=== PATIENT | female | born 1935 | race Caucasian/White ===

== ENCOUNTER 2018-11-14 12:45 | Emergency (ER) | payer MEDICARE, MEDICAID ==
[~2018-11-14] VITALS: Ht 167.6 cm; Wt 88.5 kg
[~2018-11-14 12:45] MED LIST: AMIT-189 PO; AMLO2.5T4 PO; ARIP15TA3 PO; ASPI-1264 PO; BENA40TA73 PO; DICL75TA5 PO; ESTR1.25 PO; LOVA40TA76 PO; OXYC-150 PO; POTA20TA39 PO; SYN0.0125T PO; TRIA1TAB5 PO; VAL5T PO; VENL-190 PO
[2018-11-14 12:50] VITALS: BP 170/74
== END 2018-11-14 15:30 | disposition home or self-care (01) ==
LOC: ER 12:45
DX: M25.532 Pain in left wrist (principal); I10 Essential (primary) hypertension; Z90.710 Acquired absence of both cervix and uterus; Z98.890 Other specified postprocedural states; Z88.1 Allergy status to other antibiotic agents; Z79.82 Long term (current) use of aspirin; Z79.899 Other long term (current) drug therapy
CPT/HCPCS: 29125; 73110; 73130; 99284

== ENCOUNTER 2021-10-12 13:05 | Day surgery (SDC) | payer MEDICARE, MEDICAID ==
[2021-10-07 14:09] LABS: BASOPHILS # (AUTO) 0.1 X10'3 (0-0.2); BASOPHILS % (AUTO) 1.3 % (0-1); EOSINOPHILS % (AUTO) 0.1 % (0-6); HEMATOCRIT 38.8 % (35.0-45.0); HEMOGLOBIN 13.2 g/dl (12.0-16.0); LYMPHOCYTES # (AUTO) 1.8 X10'3 (1.1-4.8); LYMPHOCYTES % (AUTO) 37.7 % (21-51); MEAN CORPUSCULAR HEMOGLOBIN 33.4 PG (27.0-31.0); MEAN CORPUSCULAR VOLUME 98.3 FL (78-98); MEAN PLATELET VOLUME 8.3 FL (7.4-10.4); MONOCYTES # (AUTO) 0.5 X10'3 (0-0.9); MONOCYTES % (AUTO) 10.1 % (2-12); NEUTROPHILS # (AUTO) 2.4 X10'3 (1.8-7.7); NEUTROPHILS % (AUTO) 50.8 % (42-75); PLATELET COUNT 153 X10'3 (140-440); RED BLOOD COUNT 3.95 X10'6 (4.20-5.60); RED CELL DISTRIBUTION WIDTH 16.8 % (11.5-14.5); WHITE BLOOD COUNT 4.8 X10'3 (4.5-11.0)
[2021-10-07 14:14] LABS: ALBUMIN 3.3 G/DL (3.4-5.0); ANION GAP 10 (8-16); BLOOD UREA NITROGEN 23 MG/DL (7-18); BUN/CREATININE RATIO 34.8 (6.6-38.0); CALCIUM 8.7 MG/DL (8.5-10.1); CHLORIDE 109 MMOL/L (99-107); CREATININE 0.66 MG/DL (0.40-0.90); GLUCOSE 96 MG/DL (70-104); POTASSIUM 3.8 MMOL/L (3.5-5.1); SODIUM 146 MMOL/L (135-145); TOTAL CARBON DIOXIDE 27.3 MMOL/L (24-32); eGFR 85 ML/MIN
[2021-10-07 14:17] LABS: PARTIAL THROMBOPLASTIN TIME 23 SECONDS (22-32)
[~2021-10-12] VITALS: Ht 165.1 cm; Wt 87.7 kg
[2021-10-12] VITALS (7 sets, daily range): BP systolic 92–159; BP diastolic 38–85
[~2021-10-12 13:05] MED LIST changes: +DIAZ5TAB22 PO; -VAL5T PO
[2021-10-12] MEDS ORDERED: LIDOcaine/PRILOcaine 5gm cream TP ONE (13:35)
[2021-10-12] MEDS ORDERED: normal saline 1,000 ML IV SCH (13:35)
[2021-10-12] MEDS ORDERED: diphenhydrAMINE 25mg capsule PO PRN (13:35)
[2021-10-12] MEDS ORDERED: LORazepam 0.5 MG tablet PO PRN (13:35)
[2021-10-12] MEDS ORDERED: nitroGLYCERIN-Tridil 50MG/D5W 250 ML IV ONE (13:40)
[2021-10-12] MEDS ORDERED: verapamil 2.5 mg/ml inj IV ONE (13:41)
[2021-10-12] MEDS ORDERED: midazolam 1 mg/ML 2ml injection ONE (13:41)
[2021-10-12] MEDS ORDERED: LIDOcaine 1% (10mg/ml)w/preservative injection 20ml MDV ONE (13:41)
[2021-10-12] MEDS ORDERED: fentaNYL/PF 50MCG/1 ML 2ML syringe ONE (13:41)
[2021-10-12] MEDS ORDERED: iohexol 350MG/ML 100ml bottle IV ONE (13:42)
[2021-10-12] MEDS ORDERED: heparin 1,000unit/ml 10ml vial 10 ML ONE (13:42)
[2021-10-12] MEDS ORDERED: BUSP10TA3 PO (14:02)
[2021-10-12] MEDS ORDERED: AMLO10TA13 PO (14:02)
[2021-10-12] MEDS ORDERED: LEVO150T8 PO (14:02)
[2021-10-12] MEDS ORDERED: VIT1CAPS46 PO (14:02)
[2021-10-12] MEDS ORDERED: METH114C4 TOP (14:03)
[2021-10-12] MEDS ORDERED: ASPI-1071 PO (14:04)
[2021-10-12] MEDS ORDERED: POLY119P2 PO (14:04)
[2021-10-12] MEDS ORDERED: ATOR20TA PO (14:05)
[2021-10-12] MEDS ORDERED: CLOP75TA15 PO (14:05)
[2021-10-12] MEDS ORDERED: DONE10TA7 PO (14:06)
[2021-10-12] MEDS ORDERED: TRAZ-256 PO (14:07)
[2021-10-12] MEDS ORDERED: BRIM5DRO16 OP (14:09)
[2021-10-12] MEDS ORDERED: DULO60CA60 PO (14:10)
[2021-10-12] MEDS ORDERED: MELA10TA PO (14:10)
[2021-10-12] MEDS ORDERED: MELO-102 PO (14:11)
[2021-10-12] MEDS ORDERED: ATENOLOL 12.5 MG PO (14:14)
[2021-10-12] MEDS ORDERED: LISI20TA28 PO (14:14)
[2021-10-12] MEDS ORDERED: MULT-1085 PO (14:14)
[2021-10-12] MEDS ORDERED: [UNRECOGNIZED DRUG - OTHER] PO (14:15)
[2021-10-12] MEDS ORDERED: [UNRECOGNIZED DRUG - OTHER] PO (14:15)
[2021-10-12] MEDS ORDERED: iohexol 350 MG/ML 50ML vial IV ONE (14:45)
[2021-10-12] MEDS ORDERED: ondansetron/PF 4mg/2ml inj IV PRN (15:25)
[2021-10-12] MEDS ORDERED: OXAZEpam 15mg capsule PO PRN (15:25)
[2021-10-12] MEDS ORDERED: HYDROcodone/acetaminophen 10/325mg tab PO PRN (15:25)
[2021-10-12] MEDS ORDERED: HYDROcodone/acetaminophen 5mg/325mg tablet PO PRN (15:25)
[2021-10-12] MEDS ORDERED: proCHLORperazine 10 MG/2 ml inj IV PRN (15:25)
== END 2021-10-12 17:22 | disposition home or self-care (01) ==
LOC: SSTAY O 13:05
PROVIDERS: ATTEND Internal Medicine Interventional Cardiology
DX: I35.0 Nonrheumatic aortic (valve) stenosis (principal); I25.10 Atherosclerotic heart disease of native coronary artery without angina pectoris; I10 Essential (primary) hypertension; I45.10 Unspecified right bundle-branch block; E03.9 Hypothyroidism, unspecified; I65.29 Occlusion and stenosis of unspecified carotid artery; M81.0 Age-related osteoporosis without current pathological fracture; Z79.01 Long term (current) use of anticoagulants; Z79.82 Long term (current) use of aspirin; Z79.899 Other long term (current) drug therapy
CPT/HCPCS: 36415; 80048; 85025; 85610; 85730; 93005; 93454; 99152; 99153; C1769; C1894; J1644; J2001; J2250; J3010; J7030; Q9967; A4620; A5120; J3490

== ENCOUNTER 2021-10-27 10:19 | Outpatient (CLI) | payer MEDICARE, MEDICAID ==
[~2021-10-27 10:19] MED LIST changes: -AMIT-189 PO; +AMLO10TA13 PO; -AMLO2.5T4 PO; -ARIP15TA3 PO; +ASPI-1071 PO; -ASPI-1264 PO; +ATENOLOL 12.5 MG PO; +ATOR20TA PO; -BENA40TA73 PO; +BRIM5DRO16 OP; +BUSP10TA3 PO; +CLOP75TA15 PO; -DIAZ5TAB22 PO; -DICL75TA5 PO; +DONE10TA7 PO; +DULO60CA60 PO; -ESTR1.25 PO; +LEVO150T8 PO; +LISI20TA28 PO; -LOVA40TA76 PO; +MELA10TA PO; +MELO-102 PO; +METH114C4 TOP; +MULT-1085 PO; +POLY119P2 PO; -SYN0.0125T PO; +TRAZ-256 PO; -TRIA1TAB5 PO; -VENL-190 PO; +VIT1CAPS46 PO; +[UNRECOGNIZED DRUG - OTHER] PO; +[UNRECOGNIZED DRUG - OTHER] PO
[2021-10-27 11:07] LABS: BASOPHILS % (AUTO) 0.9 % (0-1); EOSINOPHILS % (AUTO) 0.1 % (0-6); HEMATOCRIT 38.9 % (35.0-45.0); HEMOGLOBIN 13.1 g/dl (12.0-16.0); LYMPHOCYTES # (AUTO) 1.3 X10'3 (1.1-4.8); MEAN CORPUSCULAR HEMOGLOBIN 33.8 PG (27.0-31.0); MEAN CORPUSCULAR HGB CONC 33.6 g/dL (33.0-36.5); MEAN CORPUSCULAR VOLUME 100.6 FL (78-98); MONOCYTES # (AUTO) 0.4 X10'3 (0-0.9); MONOCYTES % (AUTO) 9.4 % (2-12); NEUTROPHILS # (AUTO) 2.7 X10'3 (1.8-7.7); NEUTROPHILS % (AUTO) 59.6 % (42-75); PLATELET COUNT 157 X10'3 (140-440); RED BLOOD COUNT 3.87 X10'6 (4.20-5.60); WHITE BLOOD COUNT 4.5 X10'3 (4.5-11.0)
[2021-10-27 11:24] LABS: PARTIAL THROMBOPLASTIN TIME 23 SECONDS (22-32)
[2021-10-27 11:25] LABS: ALANINE AMINOTRANSFERASE 23 U/L (12-78); ALBUMIN 3.3 G/DL (3.4-5.0); ALBUMIN/GLOBULIN RATIO 0.9 (1.1-1.5); ALKALINE PHOSPHATASE 103 IU/L (46-116); ANION GAP 10 (8-16); ASPARTATE AMINO TRANSFERASE 19 U/L (10-37); BILIRUBIN,TOTAL 0.4 MG/DL (0.1-1.0); BLOOD UREA NITROGEN 25 MG/DL (7-18); BUN/CREATININE RATIO 36.8 (6.6-38.0); CHLORIDE 107 MMOL/L (99-107); CREATININE 0.68 MG/DL (0.40-0.90); GLUCOSE 103 MG/DL (70-104); SODIUM 145 MMOL/L (135-145); TOTAL PROTEIN 6.8 G/DL (6.4-8.2); eGFR 82 ML/MIN
[2021-10-27] MEDS ORDERED: IODIXANOL 320 MG/ML INFUS..BTL 100ML IV ONE (11:33)
[2021-10-27] MEDS ORDERED: IODIXANOL 320 MG/ML INFUS..BTL 50ML IV ONE (11:33)
== END 2021-10-27 23:59 | disposition home or self-care (01) ==
LOC: RAD 10:19
PROVIDERS: ATTEND Internal Medicine Cardiovascular Disease
DX: K57.30 Diverticulosis of large intestine without perforation or abscess without bleeding (principal); I70.1 Atherosclerosis of renal artery; K86.89 Other specified diseases of pancreas; K55.1 Chronic vascular disorders of intestine; I70.0 Atherosclerosis of aorta; N28.1 Cyst of kidney, acquired; M85.88 Other specified disorders of bone density and structure, other site; R94.2 Abnormal results of pulmonary function studies; I31.9 Disease of pericardium, unspecified; Z20.822 Contact with and (suspected) exposure to COVID-19
CPT/HCPCS: 36415; 71046; 71275; 74174; 80053; 85025; 85610; 85730; 87635; 94010; 94727; 94729; C9803; Q9967

== ENCOUNTER 2022-10-06 08:45 | Outpatient (CLI) | payer MEDICARE, MEDICAID ==
[~2022-10-06 08:45] MED LIST changes: +DONE10TA19 PO; -DONE10TA7 PO
[2022-10-06 15:49] VITALS: BP 94/64
--- NOTE | 2022-10-06 15:50 | NUR ---
Patient and son Andres were in the [facility] today to consult with Dr. Tucker, Dr. Cherelle Goldstein and Dr. Palafox. [facility] Walk test attempted, patient unsteady and unable to complete the test. Vital signs measured. Patient education reviewed and questions answered.
== END 2022-10-06 23:59 | disposition home or self-care (01) ==
LOC: TAVR 08:45
PROVIDERS: ATTEND Internal Medicine Cardiovascular Disease
DX: Z13.6 Encounter for screening for cardiovascular disorders (principal)

== ENCOUNTER 2023-01-24 08:18 | Day surgery (SDC) | payer MEDICARE, MEDICAID ==
[2023-01-24] VITALS (11 sets, daily range): BP systolic 99–156; BP diastolic 53–82
[~2023-01-24] VITALS: Ht 167.6 cm; Wt 80.0 kg
[~2023-01-24 08:18] MED LIST changes: -MELA10TA PO; +MELATONIN10 MG PO
[2023-01-24] MEDS ORDERED: diphenhydrAMINE 25mg capsule PO PRN (08:50)
[2023-01-24] MEDS ORDERED: normal saline 1,000 ML IV SCH (08:50)
[2023-01-24] MEDS ORDERED: LORazepam 0.5 MG tablet PO PRN (08:50)
[2023-01-24] MEDS ORDERED: METO-384 PO (08:52)
[2023-01-24] MEDS ORDERED: BRIM5DRO2 EACHEYE (08:55)
[2023-01-24] MEDS ORDERED: CHOL20002 PO (08:55)
[2023-01-24] MEDS ORDERED: LEVO-65 PO (08:55)
[2023-01-24] MEDS ORDERED: DULO30CA52 PO (08:56)
[2023-01-24] MEDS ORDERED: SENN-263 PO (08:57)
[2023-01-24] MEDS ORDERED: OMEP20TA43 PO (08:58)
[2023-01-24] MEDS ORDERED: OXYC1TAB17 PO (09:01)
[2023-01-24] MEDS ORDERED: DONE-46 PO (09:01)
[2023-01-24] MEDS ORDERED: POTA-207 PO (09:16)
[2023-01-24] MEDS ORDERED: OXYC18CA PO (09:16)
[2023-01-24] MEDS ORDERED: DORZ10DR2 EACHEYE (09:16)
[2023-01-24] MEDS ORDERED: FURO20TA4 PO (09:16)
[2023-01-24] MEDS ORDERED: MV-M1TAB19 PO (09:20)
[2023-01-24] MEDS ORDERED: ASCO500C17 PO (09:21)
[2023-01-24] MEDS ORDERED: heparin 1,000 UNITS/NS 500ml 500 ML ONE ×2 (09:44→09:46)
[2023-01-24] MEDS ORDERED: iohexol 350MG/ML 100ml bottle IV ONE (09:44)
[2023-01-24] MEDS ORDERED: fentaNYL/PF 50MCG/1 ML 2ML syringe ONE (09:46)
[2023-01-24] MEDS ORDERED: nitroGLYCERIN-Tridil 50MG/D5W 250 ML IV ONE (09:46)
[2023-01-24] MEDS ORDERED: heparin 1,000unit/ml 10ml vial 10 ML ONE (09:46)
[2023-01-24] MEDS ORDERED: verapamil 2.5 mg/ml inj IV ONE (09:46)
[2023-01-24] MEDS ORDERED: midazolam 1 mg/ML 2ml injection ONE ×2 (09:46→10:54)
[2023-01-24] MEDS ORDERED: LIDOcaine 1% (10mg/ml) 2ml vial ONE ×2 (09:46→10:04)
[2023-01-24] MEDS ORDERED: LIDOcaine 1% 30ml preserv. free vial ONE (10:32)
[2023-01-24 11:02] LABS: ISTAT HGB ART 11.2 g/dl (12.0-16.0); ISTAT Hct ART 33 %PCV (35-45); ISTAT O2 SATURATION ARTERIAL 93 % (95-98); ISTAT SOURCE ART
[2023-01-24 13:53] LABS: ISTAT Hct MIX 35 %PCV (35-45); ISTAT O2 SATURATION MIX VENOUS 61 % (60-80); ISTAT SOURCE VEN
== END 2023-01-24 16:55 ==
LOC: SSTAY O 08:18
PROVIDERS: ATTEND Student in an Organized Health Care Education/Training Program
DX: I35.0 Nonrheumatic aortic (valve) stenosis (principal); I25.10 Atherosclerotic heart disease of native coronary artery without angina pectoris; E78.5 Hyperlipidemia, unspecified; J44.9 Chronic obstructive pulmonary disease, unspecified; I45.10 Unspecified right bundle-branch block; I11.9 Hypertensive heart disease without heart failure; K21.9 Gastro-esophageal reflux disease without esophagitis; M81.0 Age-related osteoporosis without current pathological fracture; F32.A Depression, unspecified; F41.9 Anxiety disorder, unspecified; H40.9 Unspecified glaucoma; M06.9 Rheumatoid arthritis, unspecified; E03.9 Hypothyroidism, unspecified; E66.9 Obesity, unspecified; Z68.28 Body mass index [BMI] 28.0-28.9, adult; Z86.73 Personal history of transient ischemic attack (TIA), and cerebral infarction without residual deficits; Z95.0 Presence of cardiac pacemaker; Z79.01 Long term (current) use of anticoagulants; Z79.82 Long term (current) use of aspirin; Z79.899 Other long term (current) drug therapy
CPT/HCPCS: 82803; 85014; 93005; 93460; 99152; 99153; C1760; C1769; C1894; J1644; J2250; J3010; J3490; J7030; Q0163; Q9967; C1751